=== PATIENT | female | born 1995 | race African-American/Black ===

== ENCOUNTER 2022-07-11 02:06 | Emergency (ER) | payer OTHER ==
[~2022-07-11] VITALS: Ht 157.5 cm; Wt 72.6 kg
[2022-07-11 02:14] VITALS: BP 114/84
--- NOTE | 2022-07-11 04:00 | NUR ---
CALLED PT FOR LAB DRAW, NO ANSWER. PT LWBS. PT WAS SEEN LEAVING ER
== END 2022-07-11 04:00 | disposition left against medical advice (07) ==
LOC: MED 02:06
DX: O21.8 Other vomiting complicating pregnancy (principal); Z3A.09 9 weeks gestation of pregnancy